=== PATIENT | male | born 1975 | race Caucasian/White ===

== ENCOUNTER 2017-04-26 07:21 | Emergency (ER) | payer SELFPAY ==
[~2017-04-26] VITALS: Ht 182.8 cm; Wt 95.3 kg
[~2017-04-26 07:21] MED LIST: AMOXICILLIN500 M2 PO; AMOXICILLIN500 MG PO; EES400 MG PO; ZYRTEC10 MG PO
[2017-04-26] MEDS ORDERED: IBU800 M1 PO (07:49)
[2017-04-26] MEDS ORDERED: CYCLOBENZAPRINE10 MG PO (07:49)
[2017-04-26 08:31] LABS: BILIRUBIN NEGATIVE (NEGATIVE); BLOOD 2+ (NEGATIVE); CLARITY CLEAR (CLEAR); COLOR YELLOW (YELLOW); GLUCOSE NEGATIVE (NEGATIVE); KETONE NEGATIVE (NEGATIVE); LEUKO ESTERASE NEGATIVE (NEGATIVE); NITRITE NEGATIVE (NEGATIVE); SPECIFIC GRAVITY <= 1.005 (1.005-1.030); UROBILINOGEN 0.2 E.U./dl (0.2-1.0)
[2017-04-26 08:39] LABS: RBC 21-30 rbc/hpf (0-2); WBC 0-2 wbc/hpf (0-5)
== END 2017-04-26 09:56 | disposition home or self-care (01) ==
LOC: ED 07:21
PROVIDERS: Emergency Medicine
DX: S39.012A Strain of muscle, fascia and tendon of lower back, initial encounter (principal); R31.9 Hematuria, unspecified; F17.200 Nicotine dependence, unspecified, uncomplicated; X58.XXXA Exposure to other specified factors, initial encounter; Y93.89 Activity, other specified; Y92.89 Other specified places as the place of occurrence of the external cause; Y99.8 Other external cause status

== ENCOUNTER 2017-11-27 10:29 | Emergency (ER) | payer SELFPAY ==
[~2017-11-27] VITALS: Ht 182.8 cm; Wt 95.3 kg
[~2017-11-27 10:29] MED LIST changes: +CYCLOBENZAPRINE10 MG PO; +IBU800 M1 PO
[2017-11-27] MEDS ORDERED: ZITHROMAX250 MG PO (11:30)
== END 2017-11-27 11:24 | disposition home or self-care (01) ==
LOC: ED 10:29
DX: L29.9 Pruritus, unspecified (principal); T36.0X5A Adverse effect of penicillins, initial encounter; J32.9 Chronic sinusitis, unspecified; F17.200 Nicotine dependence, unspecified, uncomplicated; Z79.899 Other long term (current) drug therapy; Y92.9 Unspecified place or not applicable